=== PATIENT | female | born 1990 | race African-American/Black ===

== ENCOUNTER 2017-06-21 11:28 | Emergency (ER) | payer SELFPAY ==
[2017-06-21 11:32] VITALS: BP 107/70; TEMP 99.1; BMI 23.0
[2017-06-21] MEDS ORDERED: ACETAMINOPHEN 500 MG TABLET (FP) PO ONE (12:03)
--- NOTE | 2017-06-21 12:08 | PDOC ---
History of Present Illness - General Chief Complaint: Sore Throat Stated Complaint: SORE THROAT Time Seen by Provider: 06/21/17 11:34 - History of Present Illness Initial Comments: 06/21/17 12:04 26-year-old female with no significant past medical history presents with 1 day of sore throat associated with fevers, chills. Patient denies a cough. Also associated nausea and lightheadness. Took airborne, nyquil and advil with moderate relief of sxs. Denies vomiting, CP, SOB, abd pain, LE edema, urinary symptoms. 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 Past History - Past Medical History Allergies/Adverse Reactions: Allergies Allergy/AdvReac Type Severity Reaction Status Date / Time No Known Allergies Allergy Verified 06/21/17 11:29 Home Medications: Ambulatory Orders NK [No Known Home Medication] 06/08/16 COPD: No Other medical history: DENIES - Suicide/Smoking/Psychosocial Hx Smoking History: Current some day smoker Have you smoked in the past 12 months: Yes Number of Cigarettes Smoked Daily: 2 Information on smoking cessation initiated: Yes 'Breaking Loose' booklet given: 06/21/17 Hx Alcohol Use: (social) Drug/Substance Use Hx: No Substance Use Type: None Review of Systems - Review of Systems Comments:: 06/21/17 12:06 GENERAL/CONSTITUTIONAL: +fever or chills. No weakness. HEAD, EYES, EARS, NOSE AND THROAT: No change in vision. No ear pain or discharge. +sore throat GASTROINTESTINAL: +nausea, no vomiting, diarrhea or constipation. GENITOURINARY: No dysuria, frequency, or change in urination. CARDIOVASCULAR: No chest pain or shortness of breath. RESPIRATORY: No cough, wheezing, or hemoptysis. MUSCULOSKELETAL: +bodyaches. No neck or back pain. SKIN: No rash NEUROLOGIC: No headache, vertigo, loss of consciousness, or change in strength/ sensation. ENDOCRINE: No increased thirst. No abnormal weight change. HEMATOLOGIC/LYMPHATIC: No anemia, easy bleeding, or history of blood clots. ALLERGIC/IMMUNOLOGIC: No hives or skin allergy. *Physical Exam - Vital Signs Last Vital Signs Temp Pulse Resp BP Pulse Ox 99.1 F 109 H 20 107/70 99 06/21/17 11:28 06/21/17 11:28 06/21/17 11:28 06/21/17 11:28 06/21/17 11:28 - Physical Exam Comments: 06/21/17 12:08 GENERAL: Awake, alert, and fully oriented, in no acute distress HEAD: No signs of trauma EYES: PERRLA, EOMI, sclera anicteric, conjunctiva clear ENT: Auricles normal inspection, hearing grossly normal, nares patent, oropharynx with L tonsillar exudates with midline uvula. No petechiae. Moist mucous membranes. NECK: Normal ROM, supple, +tender anterior cervical lymphadenopathy, JVD, or masses LUNGS: Breath sounds equal, clear to auscultation bilaterally. No wheezes, and no crackles HEART: Regular rate and rhythm, normal S1 and S2, no murmurs, rubs or gallops ABDOMEN: Soft, nontender, normoactive bowel sounds. No guarding, no rebound. No masses EXTREMITIES: Normal range of motion, no edema. No clubbing or cyanosis. No cords, erythema, or tenderness NEUROLOGICAL: Normal speech, cranial nerves intact, negative pronator drift, 5/ 5 strength in all 4 extremities, normal sensation to light touch in all 4 extremities, normal cerebellar exam, normal gait, normal reflexes and tone SKIN: Warm, Dry, normal turgor, no rashes or lesions noted. Medical Decision Making - Medical Decision Making 06/21/17 12:10 26-year-old female with no past medical history presents with 1 day of sore throat associated with subjective fevers, chills, nausea with no cough. Vitals remarkable for temp of 99.1 and slight tachycardia to 108 in triage however 100 on my exam. Exam with tonsillar exudates consistent with likely strep pharyngitis. Will check a rapid strep test and also check a flu swab. For pain for now will give Tylenol and once urine test is back will consider Toradol and possibly dexamethasone if strep is positive 06/21/17 14:34 Flu and strep swab negative. strep culture pending. Urine test negative. Patient feels better after Tylenol and Toradol. Likely viral pharyngitis. Repeat HR 88. I discussed the physical exam findings, ancillary test results and final diagnoses with the patient. I answered all of the patient's questions. The patient was satisfied with the care received and felt comfortable with the discharge plan and treatment plan. The patient will call their primary care physician within 24 hours to arrange follow-up and will return to the Emergency Department with any new, persistent or worsening symptoms. *DC/Admit/Observation/Transfer Diagnosis at time of Disposition: Pharyngitis - Discharge Dispostion Disposition: HOME Condition at time of disposition: Stable Admit: No - Referrals Referrals: Teetee Roberts MD [Primary Care Provider] - - Patient Instructions - Post Discharge Activity - Attestations Physician Attestion: 06/21/17 14:38 I, Dr. Sima Bettencourt MD, attest that this document has been prepared under my direction and personally reviewed by me in its entirety. I further attest, that it accurately reflects all work, treatment, procedures and medical decision -making performed by me.
[2017-06-21] MEDS ORDERED: ACETAMINOPHEN 500 MG TABLET (FP) ONE (12:18)
[2017-06-21] MEDS ORDERED: KETOROLAC TROMETHAMINE 15 MG/ML VIAL IVPUSH ONE (14:21)
[2017-06-21] MEDS ORDERED: KETOROLAC TROMETHAMINE 30 MG/1 ML VIAL ONE (14:27)
[2017-06-21] MEDS ORDERED: KETOROLAC TROMETHAMINE 30 MG/1 ML VIAL IM ONE (14:38)
[2017-06-21 14:44] VITALS: PULSE 89
== END 2017-06-21 14:40 | disposition home or self-care (01) ==
LOC: FER 11:28 → SUPCPDRO 11:28 → FER 14:40
PROC: 3E0233Z Introduction of Anti-inflammatory into Muscle, Percutaneous Approach (ICD-10-PCS; principal; 2017-06-21)
DX: J02.9 Acute pharyngitis, unspecified (principal)
CPT/HCPCS: 84703; 87070; 87077; 87430; 87804; 99283-25

== ENCOUNTER 2021-03-22 12:59 | Emergency (ER) | payer OTHER ==
[2021-03-23 10:08] LABS: SARS-CoV-2 NAA Not Detected (Not Detected)
== END 2021-03-22 13:38 | disposition home or self-care (01) ==
LOC: JVIRT 12:59
DX: Z11.52 Encounter for screening for COVID-19 (principal)
CPT/HCPCS: C9803; Q3014-GT; U0003; U0005